=== PATIENT | female | born 1955 | race Caucasian/White ===

== ENCOUNTER 2021-03-13 12:15 | Emergency (ER) | payer MEDICARE, OTHER ==
[2021-03-13] MEDS ORDERED: Sodium Chloride 0.9% 1,000 ML IV ONE (15:18)
[2021-03-13] MEDS ORDERED: Clindamycin Phosphate in D5W 600 MG in Premix Bag 1 BAG IV ONE ×2 (15:20)
[2021-03-13] MEDS ORDERED: Dexamethasone 10 MG/ML SDV IVPUSH ONE (15:20)
[2021-03-13] MEDS ORDERED: Benzocaine 20% Topical Spray UD MUCMEM ONE ×2 (15:21→18:57)
[2021-03-13 16:07] LABS: BLOOD UREA NITROGEN,BUN 12 mg/dL (7.0-18.0); CHLORIDE,CL 98 mmol/L (98-107); GLUCOSE RANDOM 100 mg/dL (74-106); POTASSIUM,K 3.7 mmol/L (3.5-5.1); SODIUM,NA 138 mmol/L (136-145)
--- NOTE | 2021-03-13 17:27 | CT ---
INDICATION: Tonsillitis, possible abscess COMPARISON: none TECHNIQUE: A CT volumetric acquisition was performed of the neck during intravenous infusion of 75 cc Isovue 370 intravenous contrast. Please note that all CT scans at this facility use dose modulation, iterative reconstruction, and/or weight-based dosing when appropriate to reduce radiation dose to as low as reasonably achievable. FINDINGS: Left tonsillar abscess is present measuring 2.6 x 2.8 x 2.5 cm. Mass effect upon the airway noted with narrowing of the airway lumen. Mild thickness of the right tonsillar pillar without right-sided abscess. Reactive left-sided adenopathy. Incidental intra parotid lymph nodes bilaterally. Salivary glands otherwise normal. Mucous retention cysts and mucosal thickening within the maxillary sinuses. Partial opacification ethmoid sinuses. Visualized brain parenchyma normal. Normal orbits. No apical pneumothorax. Mild paraseptal emphysematous changes. Dense vascular calcifications. Mild degenerative changes. No fracture. IMPRESSION: Left tonsillar abscess measuring 2.6 x 2.8 x 2.5 cm. There is mass effect upon the airway with narrowing there with movement. ENT referral recommended with care for airway protection. Please note that all CT scans at this facility use dose modulation, iterative reconstruction, and/or weight-based dosing when appropriate to reduce radiation dose to as low as reasonably achievable. Dictated by Jun Jon MD @ 03/13/2021 5:26:45 PM (Electronically Signed)
[2021-03-13] MEDS ORDERED: Ampicillin/Sulbactam Na 3 GM in Sodium Chloride 0.9% 100 ML IV ONE (17:54)
--- NOTE | 2021-03-13 18:13 | EDM.PDOC ---
ED HPI GENERAL MEDICAL PROBLEM - General Chief Complaint: General Stated Complaint: SORE THROAT, COUGH, FATIGUED Time Seen by Provider: 03/13/21 14:52 Source of Information: Reports: Patient History Limitations: Reports: No Limitations - History of Present Illness INITIAL COMMENTS - FREE TEXT/NARRATIVE: HISTORY AND PHYSICAL: History of present illness: Patient is a 65-year-old female who presents emergency room today with concern of sore throat worse on the left making it difficult to swallow and states that at times she feels like she is having a hard time breathing due to her throat pain. Patient states that this has been ongoing since last Sunday and has progressively been getting worse. Patient states she "took her toothbrush and pressed on the left side of her throat to see if it would help with the pain". Patient states that she has not been able to eat or drink anything due to the throat pain and swelling. Patient states that over the past several days, she has a sensation that she cannot breathe and states this is worse when laying back and better when sitting up. Patient denies any health history or any other symptoms or concerns. Patient denies fever, chills, chest pain. Denies headache, neck stiff ness, change in vision, syncope, or near syncope. Denies nausea, vomiting, abdominal pain, diarrhea, constipation, or dysuria. Has not noted any blood in urine or stool. Patient has been eating and drinking appropriately. Review of systems: As per history of present illness and below otherwise all systems reviewed and negative. Past medical history: As per history of present illness and as reviewed below otherwise noncontributory. Surgical history: As per history of present illness and as reviewed below otherwise noncontributory. Social history: See social history for further information Family history: As per history of present illness and as reviewed below otherwise noncontributory. Physical exam: General: Patient is alert, oriented, and in no acute distress. Patient sitting comfortably on exam table. Vitals stable and reviewed by me. HEENT: Left-sided peritonsillar abscess noted with deviation of the uvula. Patient does have pain to palpation all along the left sided neck/trachea. Otherwise, atraumatic, normocephalic, pupils equal and reactive bilaterally, negative for conjunctival pallor or scleral icterus, mucous membranes moist, TMs normal bilaterally, nontender, trachea midline. No drooling but mild trismus noted. No meningeal signs. No hot potato voice noted. Lungs: Clear to auscultation, breath sounds equal bilaterally, chest nontender. Heart: S1S2, regular rate and rhythm without overt murmur Abdomen: Soft, nondistended, nontender. Negative for masses or hepatosplenomegaly. Negative for costovertebral tenderness. Pelvis: Stable nontender. Genitourinary: Deferred. Rectal: Deferred. Skin: Intact, warm, dry. No lesions or rashes noted. Extremities: Atraumatic, negative for cords or calf pain. Neurovascular unremarkable. Neuro: Awake, alert, oriented. Cranial nerves II through XII unremarkable. Cerebellum unremarkable. Motor and sensory unremarkable throughout. Exam nonfocal. Notes: Patient is a 65-year-old female who presents emergency room today with concern of sore throat x1 week. Upon arrival to the ED, patient is vitally stable and well-appearing on exam but does have concern for left-sided peritonsillar abscess with deviation of her uvula. Patient also has pain that extends along the left side neck/trachea. Will obtain lab work, provide a dose of IV antibiotics and Decadron, and soft tissue neck CT for concern of deeper seeded abscess given distribution of pain. Mild derangements of CBC unremarkable. CMP unremarkable. COVID-19 is negative. Group A strep negative. Soft tissue neck CT shows left tonsillar abscess measuring 2.6 x 2.8 x 2.5 cm. There is mass-effect upon the airway with narrowing there with movement. ENT referral recommended with care for airway protection. I did call and speak to the ENT on-call for [facility], Dr. Padilla, and thoroughly discussed patient's case. He would like patient to receive 3 g Unasyn every 6 hours and 10 g Decadron every 8 hours and to be transferred via EMS to his facility and he will continue care for patient. Upon reevaluation of patient, she remains vitally stable and has improvement of her symptoms with therapeutics today in the emergency room. Will transfer patient to Dr. Padilla via EMS. Voices understanding and is agreeable to plan of care. Denies any further questions or concerns at this time. Diagnostics: CBC, CMP, COVID-19, group A strep, soft tissue neck CT with contrast Therapeutics: Normal saline, Decadron, clindamycin, Unasyn Impression: Tonsillar abscess, left with airway mass effect Plan: Transfer to [facility] to Dr. Padilla ENT via EMS Definitive disposition and diagnosis as appropriate pending reevaluation and review of above. - Related Data Allergies Allergy/AdvReac Type Severity Reaction Status Date / Time No Known Allergies Allergy Verified 03/13/21 14:11 Home Meds: Home Meds Cetirizine [ZyrTEC] 03/13/21 [History] Sertraline [Zoloft] 03/13/21 [History] Telmisartan/Amlodipine [Telmisartan-Amlodipine 40-10] 1 each PO 03/13/21 [History] Past Medical History - Past Health History Medical/Surgical History: Denies Medical/Surgical History Neurological History: Reports: None Endocrine/Metabolic History: Reports: None Dermatologic History: Reports: None Social & Family History - Family History Family Medical History: No Pertinent Family History - Tobacco Use Tobacco Use Status *Q: Current Every Day Tobacco User Years of Tobacco use: 30 Packs/Tins Daily: 0.5 - Caffeine Use Caffeine Use: Reports: None - Recreational Drug Use Recreational Drug Use: No ED ROS GENERAL - Review of Systems Review Of Systems: Comprehensive ROS is negative, except as noted in HPI. ED EXAM, GENERAL - Physical Exam Exam: See Below (see dictation) Course - Vital Signs Last Recorded V/S: Last Vital Signs Temp 98.2 F 03/13/21 18:27 Pulse 88 03/13/21 18:27 Resp 18 03/13/21 18:27 BP 162/81 H 03/13/21 18:27 Pulse Ox 95 03/13/21 18:27 - Orders/Labs/Meds Labs: Laboratory Tests 03/13/21 03/13/21 03/13/21 Range/Units 14:52 14:52 15:30 WBC 9.74 (4.0-11.0) K/uL RBC 4.30 (4.30-5.90) M/uL Hgb 12.3 (12.0-16.0) g/dL Hct 36.3 (36.0-46.0) % MCV 84.4 (80.0-98.0) fL MCH 28.6 (27.0-32.0) pg MCHC 33.9 (31.0-37.0) g/dL RDW Std Deviation 37.5 (28.0-62.0) fl RDW Coeff of Jose 12 (11.0-15.0) % Plt Count 202 (150-400) K/uL MPV 9.40 (7.40-12.00) fL Neut % (Auto) 72.9 (48.0-80.0) % Lymph % (Auto) 20.7 (16.0-40.0) % Screven % (Auto) 5.5 (0.0-15.0) % Eos % (Auto) 0.8 (0.0-7.0) % Baso % (Auto) 0.1 (0.0-1.5) % Neut # (Auto) 7.1 H (1.4-5.7) K/uL Lymph # (Auto) 2.0 (0.6-2.4) K/uL Screven # (Auto) 0.5 (0.0-0.8) K/uL Eos # (Auto) 0.1 (0.0-0.7) K/uL Baso # (Auto) 0.0 (0.0-0.1) K/uL Nucleated RBC % 0.0 /100WBC Nucleated RBCs # 0 K/uL Sodium (136-145) mmol/L Potassium (3.5-5.1) mmol/L Chloride (98-107) mmol/L Carbon Dioxide (21.0-32.0) mmol/L BUN (7.0-18.0) mg/dL Creatinine (0.6-1.0) mg/dL Est Cr Clr Drug Dosing mL/min Estimated GFR (MDRD) ml/min Glucose (74-106) mg/dL Calcium (8.5-10.1) mg/dL Total Bilirubin (0.2-1.0) mg/dL AST (15-37) IU/L ALT (14-63) IU/L Alkaline Phosphatase (46-116) U/L Total Protein (6.4-8.2) g/dL Albumin (3.4-5.0) g/dL Globulin (2.6-4.0) g/dL Albumin/Globulin Ratio (0.9-1.6) SARS-CoV-2 RNA (MARTIN) NEGATIVE (NEGATIVE) Group A Strep (PCR) NOT DETECTED (NOT DETECT) 03/13/21 Range/Units 15:30 WBC (4.0-11.0) K/uL RBC (4.30-5.90) M/uL Hgb (12.0-16.0) g/dL Hct (36.0-46.0) % MCV (80.0-98.0) fL MCH (27.0-32.0) pg MCHC (31.0-37.0) g/dL RDW Std Deviation (28.0-62.0) fl RDW Coeff of Jose (11.0-15.0) % Plt Count (150-400) K/uL MPV (7.40-12.00) fL Neut % (Auto) (48.0-80.0) % Lymph % (Auto) (16.0-40.0) % Screven % (Auto) (0.0-15.0) % Eos % (Auto) (0.0-7.0) % Baso % (Auto) (0.0-1.5) % Neut # (Auto) (1.4-5.7) K/uL Lymph # (Auto) (0.6-2.4) K/uL Screven # (Auto) (0.0-0.8) K/uL Eos # (Auto) (0.0-0.7) K/uL Baso # (Auto) (0.0-0.1) K/uL Nucleated RBC % /100WBC Nucleated RBCs # K/uL Sodium 138 (136-145) mmol/L Potassium 3.7 (3.5-5.1) mmol/L Chloride 98 (98-107) mmol/L Carbon Dioxide 32.0 (21.0-32.0) mmol/L BUN 12 (7.0-18.0) mg/dL Creatinine 0.7 (0.6-1.0) mg/dL Est Cr Clr Drug Dosing 75.01 mL/min Estimated GFR (MDRD) > 60.0 ml/min Glucose 100 (74-106) mg/dL Calcium 9.1 (8.5-10.1) mg/dL Total Bilirubin 0.5 (0.2-1.0) mg/dL AST 16 (15-37) IU/L ALT 36 (14-63) IU/L Alkaline Phosphatase 106 (46-116) U/L Total Protein 7.6 (6.4-8.2) g/dL Albumin 3.7 (3.4-5.0) g/dL Globulin 3.9 (2.6-4.0) g/dL Albumin/Globulin Ratio 0.9 (0.9-1.6) SARS-CoV-2 RNA (MARTIN) (NEGATIVE) Group A Strep (PCR) (NOT DETECT) Meds: Medications Discontinued Medications Generic Name Dose Route Start Last Admin Trade Name Freq PRN Reason Stop Dose Admin Benzocaine 1 each 03/13/21 15:21 03/13/21 15:33 Benzocaine 20% Topical Kitzmiller Ud MUCMEM 03/13/21 15:22 1 each ONETIME ONE Administration Benzocaine 1 each 03/13/21 18:57 03/13/21 18:59 Benzocaine 20% Topical Kitzmiller Ud MUCMEM 03/13/21 18:58 1 each ONETIME ONE Administration Dexamethasone 10 mg 03/13/21 15:20 03/13/21 15:33 Dexamethasone 10 Mg/Ml Sdv IVPUSH 03/13/21 15:21 10 mg ONETIME ONE Administration Sodium Chloride 1,000 mls @ 999 mls/hr 03/13/21 15:18 03/13/21 15:33 Normal Saline IV 03/13/21 16:18 999 mls/hr BOLUS ONE Administration Clindamycin Phosphate 600 mg/ 50 mls @ 100 mls/hr 03/13/21 15:20 03/13/21 15:33 Premix IV 03/13/21 15:49 100 mls/hr ONETIME ONE Administration Ampicillin Sodium/Sulbactam 100 mls @ 200 mls/hr 03/13/21 17:54 03/13/21 18:36 Sodium 3 gm/ Sodium Chloride IV 03/13/21 18:23 200 mls/hr ONETIME ONE Administration Iopamidol 75 ml 03/13/21 18:46 03/13/21 18:47 Iopamidol 755 Mg/Ml 500 Ml Multipack Bottle IVPUSH 03/13/21 18:47 75 ml ONETIME STA Administration Departure - Departure Time of Disposition: 18:13 Disposition: DC/Tfer to [facility] 02 Clinical Impression: Tonsillar abscess - Discharge Information Referrals: PCP,None [Primary Care Provider] - Forms: ED Department Discharge Sepsis Event Note (ED) - Focused Exam Vital Signs: Vital Signs Temp Pulse Resp BP Pulse Ox 03/13/21 18:27 98.2 F 88 18 162/81 H 95 03/13/21 17:50 78 18 138/72 96 03/13/21 16:38 82 18 133/71 97 03/13/21 15:03 88 18 138/72 95 03/13/21 14:06 97.3 F 95 20 131/82 96
[2021-03-13] MEDS ORDERED: Iopamidol 755 MG/ML 500 ML Multipack Bottle IVPUSH STA (18:46)
== END 2021-03-13 19:05 ==
LOC: MW.ED 12:15
DX: J36 Peritonsillar abscess (principal); J98.8 Other specified respiratory disorders; Z72.0 Tobacco use; Z20.822 Contact with and (suspected) exposure to COVID-19
CPT/HCPCS: 36415; 70491; 80053; 85025; 87651; 96365; 96367; 96375; 99285; A9270; J0295; J1100; J3490; J7030; Q9967; U0002

== ENCOUNTER 2021-12-21 20:31 | Emergency (ER) | payer MEDICARE, OTHER ==
[2021-12-21] MEDS ORDERED: Ketorolac 30 MG/ML SDV IM ONE (21:23)
[2021-12-21] MEDS ORDERED: Diphtheria,Pertussis(Acell),Tetanus Vaccine 0.5 ML Syringe IM ONE (21:23)
[2021-12-21 22:17] LABS: CARBON DIOXIDE,CO2 28.5 mmol/L (21.0-32.0); POTASSIUM,K 4.3 mmol/L (3.5-5.1)
[2021-12-21] MEDS ORDERED: Magnesium Oxide 400 MG Tab PO ONE (22:47)
[2021-12-21] MEDS ORDERED: Magnesium Oxide 400 MG Tab ONE (22:54)
== END 2021-12-21 23:31 | disposition home or self-care (01) ==
LOC: MW.ED 20:31
DX: S80.01XA Contusion of right knee, initial encounter (principal); S70.01XA Contusion of right hip, initial encounter; R42 Dizziness and giddiness; I10 Essential (primary) hypertension; E78.00 Pure hypercholesterolemia, unspecified; Z20.822 Contact with and (suspected) exposure to COVID-19; Z79.899 Other long term (current) drug therapy; W18.30XA Fall on same level, unspecified, initial encounter
CPT/HCPCS: 36415; 70450; 71045; 72170; 73562; 80053; 83735; 84443; 84484; 85025; 90471; 90715; 93005; 96372; 99284; A9270; J1885; U0002

== ENCOUNTER 2024-03-25 07:30 | Day surgery (SDC) | payer MEDICARE, OTHER ==
[~2024-03-25 07:30] MED LIST: Sodium Chloride 0.9% 10 ML Syringe FLUSH PRN; Sodium Chloride 0.9% 2.5 ML Syringe FLUSH PRN; Sodium Chloride 0.9% 20 ML SDV IV PRN
[2024-03-25] MEDS: Lactated Ringers 1,000 ML IV SCH (07:49)
[2024-03-25] MEDS ORDERED: propofoL 50 ML ONE (08:57)
== END 2024-03-25 10:30 | disposition home or self-care (01) ==
LOC: MW.SDS 07:30
PROVIDERS: ATTEND Surgery
DX: Z12.11 Encounter for screening for malignant neoplasm of colon (principal); K63.5 Polyp of colon; K62.1 Rectal polyp; K57.30 Diverticulosis of large intestine without perforation or abscess without bleeding; I10 Essential (primary) hypertension; E11.9 Type 2 diabetes mellitus without complications; E78.00 Pure hypercholesterolemia, unspecified; K21.9 Gastro-esophageal reflux disease without esophagitis; F17.210 Nicotine dependence, cigarettes, uncomplicated; Z79.899 Other long term (current) drug therapy; Z86.010 Personal history of colon polyps
CPT/HCPCS: 45380; 45385; 82947; J2704; J7120; 00811